=== PATIENT | female | born 1960 | race African-American/Black ===

== ENCOUNTER 2018-05-07 10:05 | Emergency (ER) | payer OTHER, BC ==
[2018-05-07] MEDS ORDERED: ONDANSETRON 4 MG/2 ML VIAL ONE (10:20)
[2018-05-07 10:21] VITALS: TEMP 97.3; BMI 27.4
[2018-05-07] MEDS ORDERED: SODIUM CHLORIDE 1,000 ML IV STA ×2 (11:41→14:10)
[2018-05-07] MEDS ORDERED: METOCLOPRAMIDE HCL INJECTION 10 MG/2 ML VIAL IVPUSH ONE (11:41)
[2018-05-07] MEDS ORDERED: ACETAMINOPHEN 1000 MG/100 ML VIAL (NON FORMULARY) IVPB ONE (11:41)
[2018-05-07] MEDS ORDERED: ACETAMINOPHEN INJECTION 100 ML IVPB ONE (11:55)
[2018-05-07] MEDS ORDERED: METOCLOPRAMIDE HCL INJECTION 10 MG/2 ML VIAL ONE (11:55)
--- NOTE | 2018-05-07 12:06 | PDOC ---
History of Present Illness - General Chief Complaint: Headache Stated Complaint: WEAKNESS Time Seen by Provider: 05/07/18 11:25 History Source: Patient Exam Limitations: No Limitations - History of Present Illness Initial Comments: 05/07/18 11:53 57 yo F with a hx of hypothyroidism, HLD, HTN, and migraines (last episode "years ago") presents to the emergency department with headache and nausea. Per the patient, the pain awoke her from sleep at approximately 8:00am and is described as pounding sensation, 10/10, originating in frontal aspect and radiating to temples bilaterally, and described as "not the worst headache of her life". She said this headache initially felt like her migraine previously, but the systemic symptoms are new. She endorses initial palpitations, SOB, and generalized weakness. She has had an URI with cough for the last 7 days with nasal congestion. Currently, she has persistent headaches with nausea. Denies the following: fever, chills, phonophobia, photophobia, chest pain, dysuria, hematuria, diarrhea, hematochezia, and leg pain/swelling. Pmhx: Refer to above Shx: None Meds: levothyroxine, amlodipine, atorvastatin, olvesartan/HCTZ Allergies: Codeine, morphine, diazepam, Social: Denies tobacco, alcohol, and substance abuse. Past History - Past Medical History Allergies/Adverse Reactions: Allergies Allergy/AdvReac Type Severity Reaction Status Date / Time codeine [Codeine] Allergy Mild Verified 05/07/18 10:15 morphine Allergy Mild Itching Verified 05/07/18 10:15 diazepam [From Valium] Allergy Verified 05/07/18 10:15 Home Medications: Ambulatory Orders Amlodipine Besylate 10 mg PO 05/07/18 Atorvastatin Calcium [Lipitor] 10 mg PO DAILY 05/07/18 Olmesartan/Hydrochlorothiazide [Benicar Hct 40-25 mg Tablet] 1 each PO DAILY 11/17 Thyroid [Warren Thyroid] 60 mg PO DAILY 05/07/18 Anemia: No Asthma: No Cancer: No Cardiac Disorders: No CVA: No COPD: No CHF: No Dementia: No Diabetes: No GI Disorders: Yes (COLON POLYPS) Disorders: No HTN: No Hypercholesterolemia: No Liver Disease: No Seizures: No Thyroid Disease: Yes - Surgical History Abdominal Surgery: Yes (MYOMECTOMY) Appendectomy: No Cardiac Surgery: No Cholecystectomy: No Lung Surgery: No Neurologic Surgery: No Orthopedic Surgery: Yes (ORIF RT ANKLE) - Suicide/Smoking/Psychosocial Hx Smoking History: Never smoked Have you smoked in the past 12 months: No If you are a former smoker, when did you quit?: 1997 Information on smoking cessation initiated: No Hx Alcohol Use: No Drug/Substance Use Hx: No Substance Use Type: None *Physical Exam - Vital Signs Last Vital Signs Temp Pulse Resp BP Pulse Ox 97.3 F L 65 18 177/84 H 100 05/07/18 10:16 05/07/18 10:16 05/07/18 10:16 05/07/18 10:16 05/07/18 10:16 Moderate Sedation - Procedure Monitoring Vital Signs: Procedure Monitoring Vital Signs Temperature 97.3 F L 05/07/18 10:16 Pulse Rate 65 05/07/18 10:16 Respiratory Rate 18 05/07/18 10:16 Blood Pressure 177/84 H 05/07/18 10:16 O2 Sat by Pulse Oximetry (%) 100 05/07/18 10:16 ED Treatment Course - LABORATORY CBC & Chemistry Diagram: 05/07/18 12:24 05/07/18 12:24 - RADIOLOGY Radiology Studies Ordered: Category Date Time Status FACIAL BONES CT W/O CONTRAST [CT] Stat CT Scan 05/07/18 11:[address] WITHOUT CONTRAST [CT] Stat CT Scan 05/07/18 11:41 Ordered CHEST PA & LAT [RAD] Stat Radiology 05/07/18 11:41 Ordered *DC/Admit/Observation/Transfer Diagnosis at time of Disposition: Nausea Headache Qualifiers: Headache type: unspecified Headache chronicity pattern: unspecified pattern Intractability: intractable Qualified Code(s): R51 - Headache - Discharge Dispostion Disposition: HOME Decision to Admit order: No - Referrals Referrals: Justin Almendarez MD [Primary Care Provider] - - Patient Instructions Printed Discharge Instructions: DI for Headache Additional Instructions: you were seen in the emergency department for the evaluation of your nausea and headache. please follow up with your primary medical doctor within 72 hours after discharge for follow up care and management. your imaging and labs were within normal limits however because you refused the lumbar puncture, we are unable to guarantee a complete rule out of a brain bleed even though the head ct was negative. please return to the emergency department if you have worsening of symptoms or new concerning symptoms such as altered mental status, fever/chills, uncontrollable vomiting, chest pain, and passing out. take ibuprofen 600 mg every 4-6 hours for pain control. Thank you. - Post Discharge Activity Forms/Work/School Notes: Back to Work
[2018-05-07 12:57] LABS: URINE APPEARANCE SLCLOUDY; URINE BILIRUBIN NEGATIVE (<2.0 mg/dL); URINE COLOR STRAW; URINE GLUCOSE (UA) 1+ (NEGATIVE); URINE KETONE NEGATIVE (NEGATIVE); URINE LEUK ESTERASE NEGATIVE (NEGATIVE); URINE NITRITE NEGATIVE (NEGATIVE); URINE PROTEIN NEGATIVE (NEGATIVE); URINE UROBILINOGEN NEGATIVE mg/dL (0.2-1.0)
[2018-05-07 12:59] LABS: BASO % 0.5 % (0-2.0); EOS % 1.6 % (0-4.5); HEMATOCRIT 43.5 % (32.4-45.2); HEMOGLOBIN 14.3 GM/dL (10.7-15.3); LYMPH % 20.2 % (8-40); MCH 28.5 pg (25.7-33.7); MCHC 32.8 g/dl (32.0-36.0); MEAN CELL VOLUME 86.9 fl (80-96); MEAN PLT VOLUME 7.8 fl (7.5-11.1); MONO % 5.4 % (3.8-10.2); NEUT % 72.3 % (42.8-82.8); PLATELET COUNT 250 K/MM3 (134-434); RBC 5.01 M/mm3 (3.60-5.2); RDW 13.9 % (11.6-15.6)
[2018-05-07 13:15] LABS: EPI CELLS RARE /HPF (FEW); URINE BACTERIA RARE /hpf (NONE SEEN)
[2018-05-07 13:16] LABS: ALBUMIN 3.7 g/dl (3.4-5.0); ALK PHOS 150 U/L (45-117); ANION GAP 10 MMOL/L (8-16); BILIRUBIN,TOTAL 0.3 mg/dL (0.2-1); BLOOD UREA NITROGEN 11 mg/dL (7-18); CALCIUM 9.3 mg/dL (8.5-10.1); CHLORIDE 103 mmol/L (98-107); CO2 26 mmol/L (21-32); CREATININE 0.7 mg/dL (0.55-1.3); GLUCOSE,RANDOM 108 mg/dL (74-106); POTASSIUM 3.9 mmol/L (3.5-5.1); SGOT/AST 22 U/L (15-37); SGPT/ALT 32 U/L (13-61); SODIUM 138 mmol/L (136-145); TOT PROT 7.7 g/dl (6.4-8.2)
--- NOTE | 2018-05-07 13:40 | EKG ---
Test Reason : Blood Pressure : / mmHG Vent. Rate : 067 BPM Atrial Rate : 067 BPM P-R Int : 144 ms QRS Dur : 092 ms QT Int : 406 ms P-R-T Axes : 053 014 010 degrees QTc Int : 429 ms NORMAL SINUS RHYTHM WITH SINUS ARRHYTHMIA MINIMAL VOLTAGE CRITERIA FOR LVH, MAY BE NORMAL VARIANT BORDERLINE ECG WHEN COMPARED WITH ECG OF 12-MAR-2006 09:08, NO SIGNIFICANT CHANGE WAS FOUND Confirmed by PHUC GALLOWAY, SADAF ([id number]) on 05/07/2018 1:39:38 PM Referred By: Confirmed By:SADAF FRIEND MD
--- NOTE | 2018-05-07 14:01 | PDOC ---
Attending Attestation - Resident Resident Name: Faisal Collazo - ED Attending Attestation I have performed the following: I have examined & evaluated the patient, The case was reviewed & discussed with the resident, I agree w/resident's findings & plan, Exceptions are as noted - HPI HPI: 05/07/18 13:58 57 F with h/o hypothyroidism, HLD, HTN, and migraines, presenting to ED with headache. Pt states that the headache was present when she awoke, denies being awoken from sleep by headache. She states that it is bifrontal, associated with nausea and one episode of vomiting. Pt denies F/C. Denies neck stiffness. She states that the headache is similar to her previous migraines but worse in severity. Denies thunderclap. Pt denies CP/SOB. Denies abdominal pain. - Physicial Exam PE: 05/07/18 13:59 "GENERAL: Awake, alert, and fully oriented, in no acute distress. HEAD: No signs of trauma EYES: PERRLA, EOMI, sclera anicteric, conjunctiva clear ENT: Auricles normal inspection, hearing grossly normal, nares patent, oropharynx clear without exudates. Moist mucosa NECK: Nontender, no stepoffs, Normal ROM, supple, no lymphadenopathy, JVD, or masses LUNGS: Breath sounds equal, clear to auscultation bilaterally. No wheezes, and no crackles HEART: Regular rate and rhythm, normal S1 and S2, no murmurs, rubs or gallops ABDOMEN: Soft, nontender, normoactive bowel sounds. No guarding, no rebound. No masses EXTREMITIES: Normal range of motion, no edema. No clubbing or cyanosis. No cords, erythema, or tenderness NEUROLOGICAL: Cranial nerves II through XII intact. 5/5 strength and sensation in all extremities, Normal speech, normal gait, normal cerebellar function SKIN: Warm, Dry, normal turgor, no rashes or lesions noted. - Medical Decision Making 05/07/18 14:00 57 F with headache. Likely migraine given prior h/o migraine headaches. Pt with no neuro deficits. No thundrclap or neck stiffness to suggest SAH. No infectious symptoms to suggest meningitis. - Labs - CT head - IVF, tylenol, reglan 05/07/18 16:[address] negative Pt reassessed - now feels completely better I discussed with pt need for LP to definitively r/o SAH despite CT being negative. SHe understands but declines LP, stating that she feels better and believes her headache was consistent with her usual migraine. Pt is well appearing, with normal vitals. Clinically stable for DC at this time. I discussed the physical exam findings, ancillary test results and final diagnoses with the patient. I answered all of the patient's questions. The patient was satisfied with the care received and felt comfortable with the discharge plan and treatment plan. The patient agrees to follow up with the primary care physician within 24-72 hours.
[2018-05-07] MEDS ORDERED: KETOROLAC TROMETHAMINE 15 MG/ML VIAL IVPUSH ONE (15:03)
[2018-05-07] MEDS ORDERED: KETOROLAC TROMETHAMINE 15 MG/ML VIAL ONE (15:41)
[2018-05-07 17:01] VITALS: BP 128/63; PULSE 88
== END 2018-05-07 17:01 | disposition home or self-care (01) ==
LOC: JER 10:05
PROC: 3E033NZ Introduction of Analgesics, Hypnotics, Sedatives into Peripheral Vein, Percutaneous Approach (ICD-10-PCS; principal; 2018-05-07)
PROC: 3E0333Z Introduction of Anti-inflammatory into Peripheral Vein, Percutaneous Approach (ICD-10-PCS; 2018-05-07)
PROC: 3E033GC Introduction of Other Therapeutic Substance into Peripheral Vein, Percutaneous Approach (ICD-10-PCS; 2018-05-07)
PROC: 3E0337Z Introduction of Electrolytic and Water Balance Substance into Peripheral Vein, Percutaneous Approach (ICD-10-PCS; 2018-05-07)
DX: R11.0 Nausea (principal); R51 Headache
CPT/HCPCS: 36415; 70450-TC; 70486-TC; 71046-TC-FY; 80053; 81003; 81015; 82550; 84484; 85025; 87086; 93005; 93010; 99283-25; J0131; J7030

== ENCOUNTER 2020-06-12 16:44 | Emergency (ER) | payer OTHER, BC ==
[2020-06-12 16:50] VITALS: BP 160/92; PULSE 96; TEMP 98; BMI 28.3
[2020-06-12] MEDS ORDERED: BAMLANIVIMAB 700 MG in SODIUM CHLORIDE 180 ML IVPB ONE (17:06)
[2020-06-12 17:41] LABS: HEMATOCRIT 44.5 % (32.4-45.2); HEMOGLOBIN 14.9 GM/dL (10.7-15.3); MCH 29.5 pg (25.7-33.7); MCHC 33.4 g/dl (32.0-36.0); MEAN CELL VOLUME 88.3 fl (80-96); MEAN PLT VOLUME 8.5 fl (7.5-11.1); PLATELET COUNT 204 K/MM3 (134-434); RBC 5.04 M/mm3 (3.60-5.2); RDW 13.3 % (11.6-15.6); WHITE BLOOD COUNT 4.9 K/mm3 (4.0-10.0)
[2020-06-12 18:05] LABS: CALCIUM 8.8 mg/dL (8.5-10.1)
[2020-06-12 18:06] LABS: BLOOD UREA NITROGEN 7.6 mg/dL (7-18)
[2020-06-12 18:09] LABS: CREATININE 0.8 mg/dL (0.55-1.3)
[2020-06-12] MEDS ORDERED: IBUPROFEN 600 MG TABLET (FP) PO ONE ×2 (20:32)
== END 2020-06-12 20:56 | disposition home or self-care (01) ==
LOC: JER 16:44
DX: U07.1 COVID-19 (principal)
CPT/HCPCS: 36415; 80048; 85027; 99284-25; M0239; Q0239